=== PATIENT | female | born 1975 | race Caucasian/White ===

== ENCOUNTER 2022-03-22 09:53 | Emergency (ER) | payer OTHER, SELFPAY ==
[2022-03-22 09:58] VITALS: BP 153/87; PULSE 117; RESP 14; TEMP 36.6; O2SAT 95; BMI 25.0
--- NOTE | 2022-03-22 10:04 | ECG_ITS ---
[facility] Test Date: 2022-03-22 Pat Name: Karla Urban Department: Room: Gender: Female Rn Mobile: : 1975 Requested By: Contreras Cho Order Number: [id number] Nga MD: Alonzo Combs M.D. Measurements Intervals [place] Rate: 81 P: 64 ID: [id number] QRS: 38 QRSD: 92 T: 53 QT: 373 QTc: 435 Interpretive Statements SINUS RHYTHM POSSIBLE LEFT ATRIAL ENLARGEMENT [-0.1mV P-WAVE IN V1/V2] POSSIBLE RIGHT VENTRICULAR CONDUCTION DELAY [RSR (QR) IN V1/V2] MODERATE ST DEPRESSION [0.05+ mV ST DEPRESSION] No previous ECG available for comparison Electronically Signed On 03-22-2022 18:09:31 CDT by Alonzo Combs M.D. [id number]
--- NOTE | 2022-03-22 10:13 | XR_ITS ---
WS: [id number] XR chest 1V portable [id number] REASON FOR EXAM: cp FINDINGS: The chest is unchanged compared to 05/11/2010. Heart and mediastinum are within normal limits. Calcified granulomatous disease is present bilaterally. Benign right lower lung mass again identified with no interval change. No acute pulmonary parenchymal or pleural abnormality. XR/XR chest 1V portable [id number] IMPRESSION: No acute chest abnormality.
--- NOTE | 2022-03-22 10:33 | W.ED.CHESTPA ---
Documented by User: MICHAEL Ely 03/22/22 14:51 HPI - Chest Pain General: Chief Complaint: Chest Pain Stated Complaint: Chest Pain Time Seen by Provider: 03/22/22 10:14 History of Present Illness: Patient is a 46-year-old female comes to the ED with chest pain. Patient states the chest pain has been intermittent for the last week. Chest pain started at rest. Pain comes and goes throughout the day. This morning patient woke up and she chest pain located in the center part of her chest and was radiating up into her neck and bilateral jaw. She states that the pain is mild she only rates it a 2 out of 10. Patient had 162 mg of aspirin this morning before coming to the ED. She denies any history of acid reflux or panic attacks. Patient does endorse drinking 2 energy drinks a day approximately 5 days a week. Denies any worsening or improving factors. Denies any palpitations, shortness of breath, nausea/vomiting, abdominal pain, fevers, chills, bladder or bowel symptoms. Associated symptoms: Deny abdominal pain, dyspnea, fever(s), nausea, palpitations or vomiting Review of Systems Const: Denies: fever(s), chills or fatigue Eyes: Denies: change in vision or eye discomfort ENMT: Denies: throat pain, odynophagia, nasal discharge or nasal congestion Card: Reports: chest pain; Denies: palpitations, edema, swelling of feet/ankles, dyspnea on exertion or orthopnea Resp: Denies: dyspnea, productive cough or non-productive cough GI: Denies: abdominal pain, nausea, vomiting, diarrhea, constipation or hematochezia : Denies: flank pain, dysuria or hematuria Musc: Denies: neck pain, back pain or extremity swelling Skin/Breast: Denies: rash or new lesions Neuro: Denies: headache(s), numbness in extremities or weakness in extremities PFSH ED PFSH: Medical History No pertinent past medical history Surgical History No pertinent past surgical history Social History Smoking and tobacco status: current every day smoker cigarettes Quit status (tobacco): not considering quitting Second hand smoke exposure: Yes Alcohol intake: never Desire information about alcohol rehabilitation?: No Desire information about substance/drug rehabilitation?: No Physical Exam Const: COMMON NORMALS: no acute distress, patient oriented x3 and alert GENERAL APPEARANCE: cooperative and comfortable HENMT: COMMON NORMALS: normocephalic HEAD & SCALP: normocephalic MOUTH: Normal oral and palatal mucosa present THROAT: posterior oropharynx normal and uvula midline Neck/C-Spine: COMMON NORMALS: supple GENERAL: Yes normal visual inspection Resp: COMMON NORMALS: normal respiratory effort, No retractions, No use of accessory muscles and clear to auscultation bilaterally AUSCULTATION: clear to auscultation bilaterally Cardio: COMMON NORMALS: regular rate, regular rhythm, S1 normal heart sound present, S2 normal heart sound present, No gallops present (Cardio), No clicks present (Cardio), No murmurs present (Cardio) and Peripheral pulses 2+ throughout RATE: regular rate RHYTHM: regular rhythm HEART SOUNDS: S1 normal heart sound present and S2 normal heart sound present PERIPHERAL PULSES: Peripheral pulses 2+ throughout GI: COMMON NORMALS: Normal to inspection, nondistended, normoactive bowel sounds present, Soft to palpation, non-tender and no masses PALPATION: Yes Soft to palpation : COMMON NORMALS: Yes no CVA tenderness BLADDER/KIDNEY EXAM: Yes no CVA tenderness Back/Pelvis: COMMON NORMALS: no CVA tenderness Extremity: COMMON NORMALS: normal to inspection Neuro: COMMON NORMALS: patient oriented x3 SENSORIUM/ORIENTATION: Yes alert GAIT: Yes Normal gait present Skin: GENERAL SKIN EXAM: dry skin Course Vital Signs: Vital signs: Vital Signs Temperature 97.8 F 03/22/22 09:58 Pulse Rate 80 03/22/22 13:15 Respiratory Rate 14 03/22/22 13:15 Blood Pressure 128/82 03/22/22 13:15 Pulse Oximetry 98 03/22/22 13:15 Oxygen Delivery Me thod 03/22/22 13:15 MDM - Chest Pain Medical Decision Making Patient is a 46-year-old female comes to the ED with chest pain. Chest pain is mild and she rates it currently 2 out of 10. Patient has had intermittent chest pain for the past week. Patient does admit to drinking 2 energy drinks a day. Vitals are stable. Patient appears nontoxic in no acute distress or pain. Exam is benign. CBC and CMP were unremarkable. Troponins negative. EKG showed no acute findings. Chest x-ray showed no acute findings. Patient was given a dose of p.o. Ativan and GI cocktail and she had some mild improvement with chest pain. Patient diagnosed with noncardiac chest pain and was discharged home. She was told to follow-up with her PCP in the next week for reevaluation. Return to ED precautions given. Patient understood and agreed with plan. Lab Data I reviewed the patient's lab results. : 03/22/22 11:00 03/22/22 11:00 Radiology Impressions Chest X-Ray 03/22/22 10:13 IMPRESSION: No acute chest abnormality. Laboratory Results WBC 11.7 10^3/uL (4.0-10.0) H 03/22/22 11:00 RBC 4.63 10^6/uL (4.1-5.3) 03/22/22 11:00 Hgb 15.0 g/dL (11.5-15.3) 03/22/22 11:00 Hct 44.5 % (37.0-47.0) 03/22/22 11:00 MCV 96.1 fl (81-99) 03/22/22 11:00 MCH 32.4 pg (28.0-34.0) 03/22/22 11:00 MCHC 33.7 g/dL (30.0-36.0) 03/22/22 11:00 RDW 12.8 % (12.1-15.1) 03/22/22 11:00 Plt Count 321 10^3/cmm (130-400) 03/22/22 11:00 MPV 9.0 fL (7.4-10.4) 03/22/22 11:00 Neut % (Auto) 77.1 % 03/22/22 11:00 Lymph % (Auto) 16.3 % 03/22/22 11:00 [place] % (Auto) 5.4 % 03/22/22 11:00 Eos % (Auto) 0.5 % 03/22/22 11:00 Baso % (Auto) 0.3 % 03/22/22 11:00 Neut # (Auto) 8.99 10^3/uL (1.8-7.7) H 03/22/22 11:00 Lymph # (Auto) 1.9 10^3/uL (0.8-4.8) 03/22/22 11:00 [place] # (Auto) 0.6 10^3/uL (0.2-0.9) 03/22/22 11:00 Eos # (Auto) 0.1 10^3/uL (0.0-0.8) 03/22/22 11:00 Baso # (Auto) 0.0 10^3/uL (0.0-0.1) 03/22/22 11:00 Nucleated RBC % (auto) 0 % 03/22/22 11:00 Nucleated RBCs # 0.0 /100WBC 03/22/22 11:00 Sodium 137 mmol/L (136-145) 03/22/22 11:00 Potassium 4.1 mmol/L (3.5-5.1) 03/22/22 11:00 Chloride 102 mmol/L (98-107) 03/22/22 11:00 Carbon Dioxide 26 mmol/L (22-29) 03/22/22 11:00 Anion Gap 13.1 (5-19) 03/22/22 11:00 BUN 9 mg/dL (6-20) 03/22/22 11:00 Creatinine 0.6 mg/dL (0.5-0.9) 03/22/22 11:00 GFR Calculation 107.6 mL/min (90-130) 03/22/22 11:00 Glucose 88 mg/dL (65-115) 03/22/22 11:00 Calculated Osmolality 282 mOsm/kg (285-295) L 03/22/22 11:00 Calcium 9.0 mg/dL (8.5-10.5) 03/22/22 11:00 Total Bilirubin 0.3 mg/dL (0.15-1.2) 03/22/22 11:00 AST 17 U/L (0-32) 03/22/22 11:00 ALT 13 U/L (0-33) 03/22/22 11:00 Alkaline Phosphatase 60 U/L (35-105) 03/22/22 11:00 Troponin T Baseline 11 ng/L (0-10) H 03/22/22 11:00 Troponin T 120 Minute 8.87 ng/L (0-10) 03/22/22 12:17 Delta Troponin T -2.13 ABS# (0-10) L 03/22/22 12:17 Total Protein 7.5 g/dL (6.6-8.7) 03/22/22 11:00 Albumin 4.0 g/dL (3.5-5.2) 03/22/22 11:00 Globulin 3.5 g/dL (1.3-4.6) 03/22/22 11:00 HCG, Qual Negative (Negative) 03/22/22 11:00 EKG Data EKG 1: EKG interpretation date: 03/22/22 Interpretation: Normal sinus rhythm, no ST segment elevation or depression seen. 81 bpm. EKG 2: EKG interpretation date: 03/22/22 Interpretation: 2-hour EKG no acute changes from prior EKG. No ST segment elevation or depression seen. 77 bpm. Discharge Plan Discharge Patient Disposition: Home Clinical Impression: Non-cardiac chest pain Condition: Stable Prescriptions: No Action multivitamin Tablet 1 tab PO DAILY Aspir-81 81 mg Tablet,Delayed Release (Dr/Ec) 162 mg PO .ONCE ibuprofen 200 mg Tablet 800 mg PO Q6H PRN (Reason: Pain) Claritin 10 mg Tablet 10 mg PO DAILY PRN (Reason: Allergy Symptoms) Humira(CF) 40 mg/0.4 mL syringe kit See Rx Instructions .ROUTE .COMPLEX Rx Instructions: inject subcutaneously every 2 weeks Discharge Orders: Discharge ED (Routine); Ordered 03/22/22 Ordered By: Kenji Valencia Referrals: Edith Dominguez [Primary Care Provider] - Discharge Diet: Regular Discharge Activity: Increase activity as tolerated Patient Instructions: Noncardiac Chest Pain (ED) Activity Restrictions/Additional Instructions: Follow-up with medical provider as directed in the next 5 to 7 days reevaluation. Cut back on energy drink usage. Return to the ER or your medical provider if condition worsens. Please read and understand discharge instructions. Thank you for choosing [facility] for your healthcare needs today. Please realize this is an emergency room and that we are providing you with a medical screening exam and this may not be complete and all inclusive of all the testing and or work up that you may need to determine your ailment or severity of your illness. It is very important that you follow up as instructed or that you return to the Emergency Department should you have concerns or if your condition changes or worsens in any way. Stand Alone Forms: Work/School Release Coding Level of Care Code ED Equine Vet for Chg Fwd Exam Comprehensive Documented by User: Contreras Bautista DO 03/23/22 05:54 HPI - Chest Pain General: Chief Complaint: Chest Pain Stated Complaint: Chest Pain Time Seen by Provider: 03/22/22 10:14 [facility] ED PFSH: Medical History No pertinent past medical history Surgical History No pertinent past surgical history Social History Smoking and tobacco status: current every day smoker cigarettes Quit status (tobacco): not considering quitting Second hand smoke exposure: Yes Alcohol intake: never Desire information about alcohol rehabilitation?: No Desire information about substance/drug rehabilitation?: No Course Vital Signs: Vital signs: Vital Signs Temperature 97.8 F 03/22/22 09:58 Pulse Rate 80 03/22/22 13:15 Respiratory Rate 14 03/22/22 13:15 Blood Pressure 128/82 03/22/22 13:15 Pulse Oximetry 98 03/22/22 13:15 Oxygen Delivery Me thod 03/22/22 13:15 MDM - Chest Pain Medical Decision Making Patient is a 46-year-old female comes to the ED with chest pain. Chest pain is mild and she rates it currently 2 out of 10. Patient has had intermittent chest pain for the past week. Patient does admit to drinking 2 energy drinks a day. Vitals are stable. Patient appears nontoxic in no acute distress or pain. Exam is benign. CBC and CMP were unremarkable. Troponins negative. EKG showed no acute findings. Chest x-ray showed no acute findings. Patient was given a dose of p.o. Ativan and GI cocktail and she had some mild improvement with chest pain. Patient diagnosed with noncardiac chest pain and was discharged home. She was told to follow-up with her PCP in the next week for reevaluation. Return to ED precautions given. Patient understood and agreed with plan. Chart reviewed and patient discussed with midlevel. Agree with assessment and plan. Lab Data : 03/22/22 11:00 03/22/22 11:00 Radiology Impressions Chest X-Ray 03/22/22 10:13 IMPRESSION: No acute chest abnormality. Laboratory Results WBC 11.7 10^3/uL (4.0-10.0) H 03/22/22 11:00 RBC 4.63 10^6/uL (4.1-5.3) 03/22/22 11:00 Hgb 15.0 g/dL (11.5-15.3) 03/22/22 11:00 Hct 44.5 % (37.0-47.0) 03/22/22 11:00 MCV 96.1 fl (81-99) 03/22/22 11:00 MCH 32.4 pg (28.0-34.0) 03/22/22 11:00 MCHC 33.7 g/dL (30.0-36.0) 03/22/22 11:00 RDW 12.8 % (12.1-15.1) 03/22/22 11:00 Plt Count 321 10^3/cmm (130-400) 03/22/22 11:00 MPV 9.0 fL (7.4-10.4) 03/22/22 11:00 Neut % (Auto) 77.1 % 03/22/22 11:00 Lymph % (Auto) 16.3 % 03/22/22 11:00 [place] % (Auto) 5.4 % 03/22/22 11:00 Eos % (Auto) 0.5 % 03/22/22 11:00 Baso % (Auto) 0.3 % 03/22/22 11:00 Neut # (Auto) 8.99 10^3/uL (1.8-7.7) H 03/22/22 11:00 Lymph # (Auto) 1.9 10^3/uL (0.8-4.8) 03/22/22 11:00 [place] # (Auto) 0.6 10^3/uL (0.2-0.9) 03/22/22 11:00 Eos # (Auto) 0.1 10^3/uL (0.0-0.8) 03/22/22 11:00 Baso # (Auto) 0.0 10^3/uL (0.0-0.1) 03/22/22 11:00 Nucleated RBC % (auto) 0 % 03/22/22 11:00 Nucleated RBCs # 0.0 /100WBC 03/22/22 11:00 Sodium 137 mmol/L (136-145) 03/22/22 11:00 Potassium 4.1 mmol/L (3.5-5.1) 03/22/22 11:00 Chloride 102 mmol/L (98-107) 03/22/22 11:00 Carbon Dioxide 26 mmol/L (22-29) 03/22/22 11:00 Anion Gap 13.1 (5-19) 03/22/22 11:00 BUN 9 mg/dL (6-20) 03/22/22 11:00 Creatinine 0.6 mg/dL (0.5-0.9) 03/22/22 11:00 GFR Calculation 107.6 mL/min (90-130) 03/22/22 11:00 Glucose 88 mg/dL (65-115) 03/22/22 11:00 Calculated Osmolality 282 mOsm/kg (285-295) L 03/22/22 11:00 Calcium 9.0 mg/dL (8.5-10.5) 03/22/22 11:00 Total Bilirubin 0.3 mg/dL (0.15-1.2) 03/22/22 11:00 AST 17 U/L (0-32) 03/22/22 11:00 ALT 13 U/L (0-33) 03/22/22 11:00 Alkaline Phosphatase 60 U/L (35-105) 03/22/22 11:00 Troponin T Baseline 11 ng/L (0-10) H 03/22/22 11:00 Troponin T 120 Minute 8.87 ng/L (0-10) 03/22/22 12:17 Delta Troponin T -2.13 ABS# (0-10) L 03/22/22 12:17 Total Protein 7.5 g/dL (6.6-8.7) 03/22/22 11:00 Albumin 4.0 g/dL (3.5-5.2) 03/22/22 11:00 Globulin 3.5 g/dL (1.3-4.6) 03/22/22 11:00 HCG, Qual Negative (Negative) 03/22/22 11:00 Discharge Plan Discharge Patient Disposition: Home Clinical Impression: Non-cardiac chest pain Condition: Stable Prescriptions: No Action multivitamin Tablet 1 tab PO DAILY Aspir-81 81 mg Tablet,Delayed Release (Dr/Ec) 162 mg PO .ONCE ibuprofen 200 mg Tablet 800 mg PO Q6H PRN (Reason: Pain) Claritin 10 mg Tablet 10 mg PO DAILY PRN (Reason: Allergy Symptoms) Humira(CF) 40 mg/0.4 mL syringe kit See Rx Instructions .ROUTE .COMPLEX Rx Instructions: inject subcutaneously every 2 weeks Discharge Orders: Discharge ED (Routine); Ordered 03/22/22 Ordered By: Kenji Valencia Referrals: Edith Dominguez [Primary Care Provider] - Discharge Diet: Regular Discharge Activity: Increase activity as tolerated Patient Instructions: Noncardiac Chest Pain (ED) Activity Restrictions/Additional Instructions: Follow-up with medical provider as directed in the next 5 to 7 days reevaluation. Cut back on energy drink usage. Return to the ER or your medical provider if condition worsens. Please read and understand discharge instructions. Thank you for choosing [facility] for your healthcare needs today. Please realize this is an emergency room and that we are providing you with a medical screening exam and this may not be complete and all inclusive of all the testing and or work up that you may need to determine your ailment or severity of your illness. It is very important that you follow up as instructed or that you return to the Emergency Department should you have concerns or if your condition changes or worsens in any way. Stand Alone Forms: Work/School Release Coding Level of Care Code ED Equine Vet for [place] Fwd Exam Comprehensive
[2022-03-22 11:00] VITALS: BP 123/84; PULSE 79; RESP 15; O2SAT 97
[2022-03-22 11:08] LABS: Basophils % 0.3 %; Eosinophils # 0.1 10^3/uL (0.0-0.8); Eosinophils % 0.5 %; Hematocrit 44.5 % (37.0-47.0); Lymphocytes # 1.9 10^3/uL (0.8-4.8); Lymphocytes % 16.3 %; Mean Corpuscular HGB Conc 33.7 g/dL (30.0-36.0); Mean Corpuscular Hemoglobin 32.4 pg (28.0-34.0); Mean Corpuscular Volume 96.1 fl (81-99); Monocytes # 0.6 10^3/uL (0.2-0.9); Monocytes % 5.4 %; Neutrophils # 8.99 10^3/uL (1.8-7.7); Neutrophils % 77.1 %; Nucleated Red Blood Cells % 0 %; Platelet Count 321 10^3/cmm (130-400); Red Blood Count 4.63 10^6/uL (4.1-5.3); Red Cell Distribution Width 12.8 % (12.1-15.1); White Blood Count 11.7 10^3/uL (4.0-10.0)
[2022-03-22] MEDS: aspirin 81 mg Chew Tablet 162 MG PO (11:20)
[2022-03-22 11:32] LABS: HCG, Serum Qual Negative (Negative)
[2022-03-22 11:33] LABS: Troponin(5th) Baseline 11 ng/L (0-10)
[2022-03-22 11:34] LABS: Alanine Aminotransferase 13 U/L (0-33); Alkaline Phosphatase 60 U/L (35-105); Anion Gap 13.1 (5-19); Aspartate Amino Transferase 17 U/L (0-32); Blood Urea Nitrogen 9 mg/dL (6-20); Carbon Dioxide 26 mmol/L (22-29); Chloride 102 mmol/L (98-107); Globulin 3.5 g/dL (1.3-4.6); Glomerular Filtration Rate 107.6 mL/min (90-130); Glucose 88 mg/dL (65-115); Osmolality Calculated 282 mOsm/kg (285-295); Potassium 4.1 mmol/L (3.5-5.1); Sodium 137 mmol/L (136-145); Total Bilirubin 0.3 mg/dL (0.15-1.2); Total Protein 7.5 g/dL (6.6-8.7)
--- NOTE | 2022-03-22 12:13 | ECG_ITS ---
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 Measurements Intervals [place] Rate: 77 P: 70 OR: 155 QRS: 52 QRSD: 106 T: 63 QT: 387 QTc: 441 Interpretive Statements SINUS RHYTHM POSSIBLE LEFT ATRIAL ENLARGEMENT [-0.1mV P-WAVE IN V1/V2] POSSIBLE RIGHT VENTRICULAR CONDUCTION DELAY [RSR (QR) IN V1/V2] Compared to ECG 03/22/2022 10:04:31 ST (T wave) deviation no longer present Electronically Signed On 03-22-2022 18:13:03 CDT by Alonzo Combs M.D. [email or web address]
[2022-03-22] MEDS: lidocaine 2% viscous 15 ML, aluminum-mag hydrox-simethicon 30 ML, sucralfate oral liq 1 GM PO (12:27)
[2022-03-22 12:54] LABS: Troponin 5 2HR 8.87 ng/L (0-10)
[2022-03-22 13:00] LABS: Troponin 5 2HR Delta -2.13 ABS# (0-10)
[2022-03-22] MEDS: LORazepam 1 mg Tablet PO (13:10)
[2022-03-22 13:15] VITALS: BP 128/82; PULSE 80; RESP 14; O2SAT 98
== END 2022-03-22 13:20 | disposition home or self-care (01) ==
PROVIDERS: Emergency Provider Physician Assistant; PCP Registered Nurse
DX: R07.89 Other chest pain (principal); F17.210 Nicotine dependence, cigarettes, uncomplicated
CPT/HCPCS: 36415; 71045; 80053; 84484; 84703; 85025; 93005; 99285

== ENCOUNTER 2024-09-11 15:14 | Outpatient (CLI) | payer BC, SELFPAY ==
--- NOTE | 2024-09-11 15:24 | XR_ITS ---
WS: [id number] XR chest 2V* [id number] REASON FOR EXAM: CHONDROCOSTAL JUNCTION SYNDROME, SOB FINDINGS: Normal aorta and heart. Calcified granulomatous disease in both hemithoraces. There are subtle reticular and linear opacities in both lower lung perkins more notably on the left. There is blunting of both costophrenic angles more prominently on the left. Bony thorax is intact with no significant focal abnormality. XR/XR chest 2V* [id number] IMPRESSION: Findings as above which may indicate a pneumonitis with small pleural effusions .
== END 2024-09-11 15:15 | disposition home or self-care (01) ==
LOC: RAD 15:16
PROVIDERS: PCP Nurse Practitioner Family; Visit Provider Nurse Practitioner Family
DX: M94.0 Chondrocostal junction syndrome [Tietze] (principal); R06.02 Shortness of breath; J94.8 Other specified pleural conditions
CPT/HCPCS: 71046